=== PATIENT | male | born 1970 | race African-American/Black ===

== ENCOUNTER 2018-08-25 12:45 | Emergency (ER) | payer OTHER ==
[~2018-08-25] VITALS: Ht 190.5 cm; Wt 106.6 kg
[2018-08-25 13:23] VITALS: BP 133/76
--- NOTE | 2018-08-25 13:26 | NUR ---
ED Nurse Note: pt walked in to ED due to abdominal pain, burning pain on both heel, tingling sensation on 10 fingers for over few months. pt seen by multiple doctors. today, pt had blurred vision episode. after eating, vision gets clear. 20/25 on vision acuity level. AAO x4. respirations even and non-labored noted. skin warm to touch. no open wound noted. will wait for the further order.
--- NOTE | 2018-08-25 14:12 | NUR ---
ED Nurse Note: lab sent.
--- NOTE | 2018-08-25 14:15 | Emergency Room Report ---
History of Present Illness General Chief Complaint: General Complaint Source: Patient Present Illness HPI 48 YO Male presents to the ED c/o burning LE numbness/tingling x over 6 months. Pt. reports episode of feeling anxious and having blurry vision that resolved after eating food. He denies eye pain. photophobia or increased lacrimation. Pt. reports has not been able to eat food much he has been suffering from abdominal issue x 6 months. Denies abdominal tenderness. Pt. reports multiple episodes of feeling anxious and breaks out in a cold sweat. pt. reports being under a lot of stress lately. Denies every being evaluated or treated for GERD or PUD. Pt. reports was evaluated once for his gall bladder which he endorses was determined to be normal. He denies constipation or diarrhea. He states that 3 months ago he visited his PMD for c/o blood in the stool and dark stools for which his pcp did not evaluate.Pt. states he is not currently experiencing blood in the stool or dark tarry stools. Pt. reports he has significantly decreased his oral intake as eating exacerbated his abdominal pain. Denies night sweats or significant changes in weight. He has no significant PmHx, but reports multiple family members with DM. pt. denies dizziness, acute onset of SHEARER, CP, palpitations, syncope, vision loss or hearing changes/ tinnitus. Allergies: Uncoded Allergies: SHELLFISH (Allergy, Unknown, 08/25/18) Patient History Past Medical History: see triage record Past Surgical History: none Pertinent Family History: none Reviewed Nursing Documentation: PMH: Agreed; PSxH: Agreed Nursing Documentation-PMH Past Medical History: No Stated History Review of Systems All Other Systems: negative except mentioned in HPI Physical Exam Vital Signs Date Time Temp Pulse Resp B/P (MAP) Pulse Ox O2 Delivery O2 Flow Rate FiO2 08/25/18 13:09 98.4 85 16 133/76 98 Room Air Sp02 EP Interpretation: reviewed, normal General Appearance: no apparent distress, alert, GCS 15, non-toxic Head: normocephalic, atraumatic Eyes: bilateral eye normal inspection, bilateral eye PERRL, bilateral eye EOMI , bilateral eye visual acuity ENT: hearing grossly normal, normal voice Neck: full range of motion, no meningismus Respiratory: chest non-tender, lungs clear, normal breath sounds, no wheezing, speaking full sentences Cardiovascular #1: regular rate, rhythm Gastrointestinal: normal bowel sounds, non tender, soft, non-distended, no guarding Musculoskeletal: back normal, gait/station normal, normal range of motion, non- tender Neurologic: alert, oriented x3, responsive, motor strength/tone normal, sensory intact, normal gait, speech normal, other, grossly normal Psychiatric: judgement/insight normal Skin: normal color, no rash, warm/dry, well hydrated Lymphatic: no adenopathy Medical Decision Making PA Attestation Dr. Ralph is my supervising Physician whom patient management has been discussed with. Diagnostic Impression: Primary Impression: Paresthesias/numbness Additional Impressions: Cold sweat Epigastric abdominal pain ER Course 48 YO Male presents to the ED c/o burning LE numbness/tingling x over 6 months. Pt. reports episode of feeling anxious and having blurry vision that resolved after eating food. He denies eye pain. photophobia or increased lacrimation. Pt. reports has not been able to eat food much he has been suffering from abdominal issue x 6 months. Denies abdominal tenderness. Pt. reports multiple episodes of feeling anxious and breaks out in a cold sweat. pt. reports being under a lot of stress lately. Denies every being evaluated or treated for GERD or PUD. Pt. reports was evaluated once for his gall bladder which he endorses was determined to be normal. He denies constipation or diarrhea. He states that 3 months ago he visited his PMD for c/o blood in the stool and dark stools for which his pcp did not evaluate.Pt. states he is not currently experiencing blood in the stool or dark tarry stools. Pt. reports he has significantly decreased his oral intake as eating exacerbated his abdominal pain. Denies night sweats or significant changes in weight. He has no significant PmHx, but reports multiple family members with DM. pt. denies dizziness, acute onset of SHEARER, CP, palpitations, syncope, vision loss or hearing changes/ tinnitus. Ddx considered but are not limited to neuropathy, paresthesia, electrolyte imbalance, cardiac dysrhythmia, stroke, DVT, B-6,4, or 12 deficiency, nerve palsy, neuritis, DM, glaucoma, hyper thyroid. just to name a few Vital signs: are WNL, pt. is afebrile H&PE are most consistent with normal PE, no focal neurological deficits. patient is NVI. Visual acuity is 25/20. Currently symptomatic. Suspect possible vitamin deficiency,PUD, DM or thyroid dysfunction given history of abdominal issues, and decrease in appetite secondary to pain. ORDERS: -CBC: unremarkable -CMP: glucose WNL, unremarkable other than bili of 1. -TSH: WNL ED INTERVENTIONS: - Pepcid PO - Protonix PO -I do not identify an emergent condition at this time. With current presentation , pt. is stable for close outpatient follow up and conservative treatment. D/ w pt. to return promptly to ED with worsening or new symptoms.- Pt. verbalizes' understanding and agreement with proposed treatment plan.proposed treatment plan. - D/w pt. to follow up with PCP, GI specialist and Neurologist if conservative treatment does not relieve symptoms or for further evaluation. DISCHARGE: At this time pt. is stable for d/c to home. Will provide printed patient care instructions, and any necessary prescriptions. Care plan and follow up instructions have been discussed with the patient prior to discharge. Labs Test 08/25/18 14:12 White Blood Count 3.5 K/UL (4.8-10.8) Red Blood Count 4.94 M/UL (4.70-6.10) Hemoglobin 14.9 G/DL (14.2-18.0) Hematocrit 44.8 % (42.0-52.0) Mean Corpuscular Volume 91 FL (80-99) Mean Corpuscular Hemoglobin 30.1 PG (27.0-31.0) Mean Corpuscular Hemoglobin Concent 33.2 G/DL (32.0-36.0) Red Cell Distribution Width 12.7 % (11.6-14.8) Platelet Count 195 K/UL (150-450) Mean Platelet Volume 8.3 FL (6.5-10.1) Neutrophils (%) (Auto) 62.1 % (45.0-75.0) Lymphocytes (%) (Auto) 30.7 % (20.0-45.0) Monocytes (%) (Auto) 6.2 % (1.0-10.0) Eosinophils (%) (Auto) 0.2 % (0.0-3.0) Basophils (%) (Auto) 0.7 % (0.0-2.0) Sodium Level 141 MMOL/L (136-145) Potassium Level 4.5 MMOL/L (3.5-5.1) Chloride Level 104 MMOL/L (98-107) Carbon Dioxide Level 31 MMOL/L (21-32) Anion Gap 6 mmol/L (5-15) Blood Urea Nitrogen 13 mg/dL (7-18) Creatinine 1.3 MG/DL (0.55-1.30) Estimat Glomerular Filtration Rate > 60 mL/min (>60) Glucose Level 105 MG/DL (74-106) Calcium Level 9.5 MG/DL (8.5-10.1) Total Bilirubin 1.8 MG/DL (0.2-1.0) Direct Bilirubin 0.2 MG/DL (0.0-0.3) Aspartate Amino Transf (AST/SGOT) 18 U/L (15-37) Alanine Aminotransferase (ALT/SGPT) 26 U/L (12-78) Alkaline Phosphatase 75 U/L (46-116) Total Protein 7.8 G/DL (6.4-8.2) Albumin 3.9 G/DL (3.4-5.0) Globulin 3.9 g/dL Albumin/Globulin Ratio 1.0 (1.0-2.7) Thyroid Stimulating Hormone (TSH) 1.494 uiU/mL (0.358-3.740) Last Vital Signs Date Time Temp Pulse Resp B/P (MAP) Pulse Ox O2 Delivery O2 Flow Rate FiO2 08/25/18 13:23 98.4 85 16 133/76 98 Room Air Status: improved Disposition: HOME, SELF-CARE Condition: Stable Scripts Ranitidine Hcl* (ZANTAC*) 150 Mg Tablet 150 MG ORAL TWICE A DAY for 14 Days, #7 TAB Prov: Dimple Gilliam 08/25/18 Omeprazole (OMEPRAZOLE) 40 Mg Capsule.dr 40 MG ORAL DAILY for 14 Days, #28 CAP Prov: Dimple Gilliam 08/25/18 Patient Instructions: Food Choices for Peptic Ulcer Disease, Paresthesia, Easy- to-Read, Peptic Ulcer, [id number] Additional Instructions: Take medications as directed. Follow up with a Primary Care Provider in 3-5 days, even if your symptoms have resolved. --Please review list of primary care clinics, if you do not already have a primary care provider Return sooner to ED if new symptoms occur, or current symptoms become worse. - Please note that this Emergency Department Report was dictated using [employer] technology software, occasionally this can lead to erroneous entry secondary to interpretation by the dictation equipment. Dimple Gilliam Aug 25, 2018 14:15
[2018-08-25 14:23] LABS: BASOPHILS % (AUTO) 0.7 % (0.0-2.0); EOSINOPHILS % (AUTO) 0.2 % (0.0-3.0); HEMATOCRIT 44.8 % (42.0-52.0); HEMOGLOBIN 14.9 G/DL (14.2-18.0); LYMPHOCYTES % (AUTO) 30.7 % (20.0-45.0); MEAN CORPUSCULAR VOLUME 91 FL (80-99); MONOCYTES % (AUTO) 6.2 % (1.0-10.0); NEUTROPHILS % (AUTO) 62.1 % (45.0-75.0); PLATELET COUNT 195 K/UL (150-450); RED BLOOD COUNT 4.94 M/UL (4.70-6.10); RED CELL DISTRIBUTION WIDTH 12.7 % (11.6-14.8); WHITE BLOOD COUNT 3.5 K/UL (4.8-10.8)
[2018-08-25 14:33] LABS: ANION GAP 6 mmol/L (5-15); BLOOD UREA NITROGEN 13 mg/dL (7-18); CALCIUM 9.5 MG/DL (8.5-10.1); CARBON DIOXIDE 31 MMOL/L (21-32); CHLORIDE 104 MMOL/L (98-107); CREATININE 1.3 MG/DL (0.55-1.30); POTASSIUM 4.5 MMOL/L (3.5-5.1); SODIUM 141 MMOL/L (136-145)
[2018-08-25 14:45] LABS: ALANINE AMINOTRANSFERASE 26 U/L (12-78); ALBUMIN 3.9 G/DL (3.4-5.0); ALKALINE PHOSPHATASE 75 U/L (46-116); ASPARTATE AMINO TRANSFERASE 18 U/L (15-37); BILIRUBIN,TOTAL 1.8 MG/DL (0.2-1.0)
[2018-08-25 14:46] LABS: BILIRUBIN,DIRECT 0.2 MG/DL (0.0-0.3)
[2018-08-25] MEDS ORDERED: ZANTAC150 MG ORAL (16:24)
[2018-08-25] MEDS ORDERED: OMEPRAZOLE40 M1 ORAL (16:24)
[2018-08-25 16:34] VITALS: BP 127/70
--- NOTE | 2018-08-25 16:35 | NUR ---
ER DISCHARGE NOTE: Patient is cleared to be discharged per ERMD, pt is aox4, on room air, with stable vital signs. pt was given dc and prescription instructions, pt was able to verbalize understanding, pt id band removed. pt is able to ambulate with steady gait. pt took all belongings.
== END 2018-08-25 16:36 | disposition home or self-care (01) ==
LOC: EMR 14:00
DX: R20.2 Paresthesia of skin (principal); R10.13 Epigastric pain; Z91.013 Allergy to seafood
CPT/HCPCS: 36415; 80053; 82248; 84443; 85025; 99284

== ENCOUNTER 2018-09-29 13:20 | Emergency (ER) | payer OTHER ==
[~2018-09-29] VITALS: Ht 190.5 cm; Wt 104.3 kg
[~2018-09-29 13:20] MED LIST: OMEPRAZOLE40 M1 ORAL; ZANTAC150 MG ORAL
[2018-09-29] MEDS ORDERED: METOCLOPRA10 MG/10 M ORAL (13:43)
[2018-09-29] MEDS ORDERED: TRAMADOL HCL50 MG ORAL (13:43)
[2018-09-29] MEDS ORDERED: OMEPRAZOLE40 M1 ORAL (13:43)
[2018-09-29] MEDS ORDERED: SIMETHICONE80 MG ORAL (13:43)
[2018-09-29 13:46] VITALS: BP 118/76
--- NOTE | 2018-09-29 13:49 | NUR ---
ED Nurse Note: Patient walked in to ER c/o general weakness followed by abdominal pain 4/10 on Rt lower quadrant which radiates to all quadrants and nausea but no V/D. pt aao x4 and able to ambulate. per pt, it has been going for few months and he had biopsy on abdomen on Tuesday and weakness got worse since. skin clean and intact.
--- NOTE | 2018-09-29 14:21 | Emergency Room Report ---
History of Present Illness General Chief Complaint: Generalized Weakness Source: Patient, Medical Record Present Illness HPI Patient has recently had an upper endoscopy 2 days ago at an outside facility Patient reports that he has been feeling weak over the past 2 days denies any fevers or chills Patient initially had the upper endoscopy secondary to abdominal pain Denies any diarrhea denies any fevers or chills Denies any recent travel or rash Allergies: Uncoded Allergies: SHELLFISH (Allergy, Unknown, 08/25/18) Patient History Past Medical History: see triage record Pertinent Family History: none Reviewed Nursing Documentation: PMH: Agreed; PSxH: Agreed Nursing Documentation-PMH Past Medical History: No History, Except For Hx Gastrointestinal Problems: Yes - heartburn Review of Systems All Other Systems: negative except mentioned in HPI Physical Exam Vital Signs Date Time Temp Pulse Resp B/P (MAP) Pulse Ox O2 Delivery O2 Flow Rate FiO2 09/29/18 13:38 96.4 69 16 94 Room Air 09/29/18 13:46 118/76 Sp02 EP Interpretation: reviewed, normal General Appearance: well appearing, no apparent distress Head: normocephalic, atraumatic Eyes: bilateral eye PERRL, bilateral eye EOMI ENT: hearing grossly normal, normal pharynx, TMs + canals normal, uvula midline Neck: full range of motion, supple, no meningismus, no bony tend Respiratory: lungs clear, normal breath sounds, no rhonchi, no respiratory distress, no retraction, no accessory muscle use Cardiovascular #1: normal peripheral pulses, regular rate, rhythm, no edema, no gallop, no JVD, no murmur Gastrointestinal: normal bowel sounds, non tender, soft, no mass, no organomegaly, non-distended, no guarding, no hernia, no pulsatile mass, no rebound Genitourinary: no CVA tenderness Musculoskeletal: normal inspection Neurologic: oriented x3, responsive, 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, motor strength/ tone normal, sensory intact Psychiatric: mood/affect normal Skin: normal color, no rash, warm/dry, palpation normal Lymphatic: normal inspection, no adenopathy Medical Decision Making Diagnostic Impression: Primary Impression: Episode of generalized weakness ER Course Multiple differentials and consideration given the patient's recent upper endoscopy repeat blood work was initiated All at baseline levels patient does not appear to show signs of anemia electrolytes are appropriate patient remains hemodynamically stable at this time is appropriate for close outpatient follow-up Labs Test 09/29/18 14:10 White Blood Count 4.8 K/UL (4.8-10.8) Red Blood Count 4.63 M/UL (4.70-6.10) Hemoglobin 14.1 G/DL (14.2-18.0) Hematocrit 41.8 % (42.0-52.0) Mean Corpuscular Volume 90 FL (80-99) Mean Corpuscular Hemoglobin 30.4 PG (27.0-31.0) Mean Corpuscular Hemoglobin Concent 33.7 G/DL (32.0-36.0) Red Cell Distribution Width 12.7 % (11.6-14.8) Platelet Count 163 K/UL (150-450) Mean Platelet Volume 9.7 FL (6.5-10.1) Neutrophils (%) (Auto) 84.3 % (45.0-75.0) Lymphocytes (%) (Auto) 11.8 % (20.0-45.0) Monocytes (%) (Auto) 3.3 % (1.0-10.0) Eosinophils (%) (Auto) 0.3 % (0.0-3.0) Basophils (%) (Auto) 0.3 % (0.0-2.0) Sodium Level 142 MMOL/L (136-145) Potassium Level 4.3 MMOL/L (3.5-5.1) Chloride Level 106 MMOL/L (98-107) Carbon Dioxide Level 31 MMOL/L (21-32) Anion Gap 5 mmol/L (5-15) Blood Urea Nitrogen 10 mg/dL (7-18) Creatinine 1.3 MG/DL (0.55-1.30) Estimat Glomerular Filtration Rate > 60 mL/min (>60) Glucose Level 123 MG/DL (74-106) Calcium Level 9.4 MG/DL (8.5-10.1) Total Bilirubin 1.2 MG/DL (0.2-1.0) Direct Bilirubin 0.2 MG/DL (0.0-0.3) Aspartate Amino Transf (AST/SGOT) 18 U/L (15-37) Alanine Aminotransferase (ALT/SGPT) 25 U/L (12-78) Alkaline Phosphatase 68 U/L (46-116) Total Protein 7.4 G/DL (6.4-8.2) Albumin 3.7 G/DL (3.4-5.0) Globulin 3.7 g/dL Albumin/Globulin Ratio 1.0 (1.0-2.7) Rhythm Strip Diag. Results EP Interpretation: yes Rate: 70 Rhythm: NSR, no PVC's, no ectopy Last Vital Signs Date Time Temp Pulse Resp B/P (MAP) Pulse Ox O2 Delivery O2 Flow Rate FiO2 09/29/18 13:46 71 16 Room Air 09/29/18 13:46 96.4 118/76 98 Status: improved Disposition: HOME, SELF-CARE Condition: Improved Additional Instructions: Patient is provided with the discharge instructions notified to follow up with primary doctor in the next 2-3 days otherwise return to the er with any worsening symptoms. Please note that this report is being documented using [employer] technology. This can lead to erroneous entry secondary to incorrect interpretation by the dictating instrument. Loli Boyce DO September 29, 2018 14:21
[2018-09-29 14:25] LABS: BASOPHILS % (AUTO) 0.3 % (0.0-2.0); EOSINOPHILS % (AUTO) 0.3 % (0.0-3.0); HEMATOCRIT 41.8 % (42.0-52.0); HEMOGLOBIN 14.1 G/DL (14.2-18.0); LYMPHOCYTES % (AUTO) 11.8 % (20.0-45.0); MEAN CORPUSCULAR VOLUME 90 FL (80-99); MONOCYTES % (AUTO) 3.3 % (1.0-10.0); NEUTROPHILS % (AUTO) 84.3 % (45.0-75.0); PLATELET COUNT 163 K/UL (150-450); RED BLOOD COUNT 4.63 M/UL (4.70-6.10); RED CELL DISTRIBUTION WIDTH 12.7 % (11.6-14.8); WHITE BLOOD COUNT 4.8 K/UL (4.8-10.8)
[2018-09-29 14:36] LABS: ANION GAP 5 mmol/L (5-15); BLOOD UREA NITROGEN 10 mg/dL (7-18); CALCIUM 9.4 MG/DL (8.5-10.1); CARBON DIOXIDE 31 MMOL/L (21-32); CHLORIDE 106 MMOL/L (98-107); CREATININE 1.3 MG/DL (0.55-1.30); POTASSIUM 4.3 MMOL/L (3.5-5.1); SODIUM 142 MMOL/L (136-145)
[2018-09-29 14:40] LABS: ALANINE AMINOTRANSFERASE 25 U/L (12-78); ALBUMIN 3.7 G/DL (3.4-5.0); ALKALINE PHOSPHATASE 68 U/L (46-116); ASPARTATE AMINO TRANSFERASE 18 U/L (15-37); BILIRUBIN,TOTAL 1.2 MG/DL (0.2-1.0)
[2018-09-29 14:50] LABS: BILIRUBIN,DIRECT 0.2 MG/DL (0.0-0.3)
[2018-09-29 15:18] VITALS: BP 117/71
--- NOTE | 2018-09-29 15:19 | NUR ---
ER DISCHARGE NOTE: Patient is cleared to be discharged per ERMD, pt is aox4, on room air, with stable vital signs. pt was given dc instructions, pt was able to verbalize understanding, pt id band removed. pt is able to ambulate with steady gait. pt took all belongings.
== END 2018-09-29 15:19 | disposition home or self-care (01) ==
LOC: EMR 14:01
DX: R53.1 Weakness (principal); Z91.013 Allergy to seafood
CPT/HCPCS: 36415; 80053; 82248; 85025; 99284